=== PATIENT | male | born 1985 | race Caucasian/White ===

== ENCOUNTER 2018-01-20 00:14 | Inpatient (IN) | payer OTHER ==
[~2018-01-20] VITALS: Ht 175.3 cm; Wt 87.7 kg
[2018-01-20 02:24] LABS: AMPHET/METH SCREEN,URINE NEGATIVE (NEGATIVE); BARBITURATE SCREEN, URINE NEGATIVE (NEGATIVE); BENZODIAZEPINES SCREEN,URINE NEGATIVE (NEGATIVE); CANNABINOID SCREEN,URINE NEGATIVE (NEGATIVE); COCAINE SCREEN,URINE NEGATIVE (NEGATIVE); METHADONE SCREEN, URINE NEGATIVE (NEGATIVE); OPIATE SCREEN,URINE NEGATIVE (NEGATIVE)
[2018-01-20 02:25] LABS: PHENCYCLIDINE SCREEN,URINE NEGATIVE (NEGATIVE)
[2018-01-20] MEDS ORDERED: LORazepam 2 MG/ML VIAL IM ONE (02:30)
[2018-01-20] MEDS ORDERED: DiphenhydrAMINE HCL 50 MG/ML VIAL IM ONE (02:30)
[2018-01-20] MEDS ORDERED: HALOPERIDOL LACTATE 5 MG/ML VIAL IM ONE (02:30)
[2018-01-20] MEDS ORDERED: LORazepam 2 MG TABLET PO PRN (03:45)
[2018-01-20] MEDS ORDERED: ZOLPIDEM TARTRATE 10 MG TABLET PO PRN (03:45)
[2018-01-20] MEDS ORDERED: HALOPERIDOL 5 MG TABLET PO PRN (03:45)
[2018-01-20 04:47] LABS: EOSINOPHILS % (AUTO) 2.2 % (1.0-6.0); HEMATOCRIT 40.7 % (41-53); HEMOGLOBIN 14.4 g/dL (13.5-17.5); LYMPHOCYTES # (AUTO) 2.3 K/uL (1.0-4.8); LYMPHOCYTES % (AUTO) 28.8 % (22.0-44.0); MEAN CORPUSCULAR HEMOGLOBIN 30.4 pg (26.0-34.0); MEAN CORPUSCULAR HGB CONC 35.5 G/dL (31.0-37.0); MEAN CORPUSCULAR VOLUME 86 fL (80-100); MONOCYTES # (AUTO) 0.6 K/uL (0.1-1.0); MONOCYTES % (AUTO) 6.9 % (2.0-9.0); NEUTROPHILS # (AUTO) 4.9 K/uL (1.8-7.7); NEUTROPHILS % (AUTO) 61.1 % (40.0-70.0); PLATELET COUNT (AUTO) 212 K/uL (150-450); RED BLOOD CELL COUNT(AUTO) 4.74 MIL/uL (4.50-5.90); RED CELL DISTRIBUTION WIDTH 12.6 % (11.5-14.5)
[2018-01-20 04:50] LABS: ANION GAP 5 mmol/L (8-16); CALCIUM, TOTAL 8.2 mg/dL (8.8-10.5); CARBON DIOXIDE 32 mmol/L (22-29); CHLORIDE 103 mmol/L (98-107); CREATININE 1.05 mg/dL (0.60-1.30); GLOMERULAR FILTR. RATE CALC > 60 mL/min (>60); GLUCOSE,RANDOM 100 mg/dL (70-110); SODIUM SERUM 140 mmol/L (136-145); UREA NITROGEN, BLOOD 17 mg/dL (7-18)
[2018-01-20 04:56] LABS: ALANINE AMINOTRANSFERASE 43 U/L (12-78); ALBUMIN 4.2 g/dL (3.4-5.0); ALKALINE PHOSPHATASE 98 U/L (46-116); ASPARTATE AMINOTRANSFERASE 24 U/L (15-37); BILIRUBIN,TOTAL 0.2 mg/dL (0.1-1.0); TOTAL PROTEIN, SERUM 7.5 g/dL (6.4-8.2)
[2018-01-20 08:35] VITALS: BP 145/89
[2018-01-20] MEDS: VENLAFAXINE HCL 150 MG ER CAPSULE PO SCH (12:33)
[2018-01-20] MEDS: LORazepam 2 MG TABLET PO PRN (14:56)
[2018-01-20] MEDS: CarBAMazepine 200 MG TABLET PO SCH (16:44)
[2018-01-20 20:42] VITALS: BP 151/89
[2018-01-21 07:05] LABS: HEMOGLOBIN A1C 5.2 % (4.5-6.2)
[2018-01-21 07:11] LABS: CHOL/HDL RATIO 3.1 (4.2-7.3); FREE T4 (FREE THYROXINE) 0.78 ng/dL (0.76-1.46); THYROID STIMULATING HORMONE 0.98 uIU/mL (0.36-3.74)
[2018-01-21 08:17] VITALS: BP 139/97
[2018-01-21] MEDS: CarBAMazepine 200 MG TABLET PO SCH ×2 (08:33→17:16)
[2018-01-21] MEDS: VENLAFAXINE HCL 150 MG ER CAPSULE PO SCH (08:33)
[2018-01-21] MEDS ORDERED: CYANOCOBALAMIN 1,000 MCG/ML VIAL IM ONE (13:45)
[2018-01-21] MEDS ORDERED: CloNIDine HCL 0.1 MG TABLET PO PRN (13:45)
[2018-01-21] MEDS: LORazepam 2 MG TABLET PO PRN ×3 (14:11→23:11)
[2018-01-21 16:23] VITALS: BP 130/80
[2018-01-21] MEDS ORDERED: ACETAMINOPHEN 325 MG TABLET PO PRN (17:45)
[2018-01-21] MEDS: IBUPROFEN 400 MG TABLET PO PRN (17:55)
[2018-01-22] MEDS: VENLAFAXINE HCL 150 MG ER CAPSULE PO SCH (07:44)
[2018-01-22] MEDS: LORazepam 2 MG TABLET PO PRN ×2 (07:44→12:00)
[2018-01-22] MEDS: CarBAMazepine 200 MG TABLET PO SCH (07:44)
[2018-01-22 08:04] VITALS: BP 138/85
[2018-01-22] MEDS ORDERED: FOLIC ACID 1 MG TABLET PO SCH (09:00)
[2018-01-22] MEDS ORDERED: THIAMINE HCL 100 MG TABLET PO SCH (09:00)
[2018-01-22] MEDS ORDERED: ONDANSETRON HCL 4 MG TABLET PO PRN (09:15)
[2018-01-22] MEDS: IBUPROFEN 400 MG TABLET PO PRN (12:00)
[2018-01-22 12:04] VITALS: BP 133/82
[2018-01-22] MEDS ORDERED: DISULFIRAM 250 MG TABLET PO SCH (13:00)
[2018-01-22] MEDS ORDERED: CARB200T6 PO (13:52)
[2018-01-22] MEDS ORDERED: VENL-68 PO (13:53)
[2018-01-22] MEDS ORDERED: DISU250 PO (13:54)
== END 2018-01-22 14:10 | disposition home or self-care (01) | DRG 885 ==
LOC: EMS 00:14 → 3EC 04:00
PROVIDERS: ADMIT Psychiatry & Neurology Psychiatry; ATTEND Psychiatry & Neurology Psychiatry
DX: F33.2 Major depressive disorder, recurrent severe without psychotic features (principal); F20.9 Schizophrenia, unspecified; F19.90 Other psychoactive substance use, unspecified, uncomplicated; F10.20 Alcohol dependence, uncomplicated; E78.1 Pure hyperglyceridemia; Z78.1 Physical restraint status; Z98.52 Vasectomy status; Z79.899 Other long term (current) drug therapy
CPT/HCPCS: 83036; 84439; 84443; 96372; G0480; J1200; J1630; J2060; J3420